=== PATIENT | male | born 1970 | race African-American/Black ===

== ENCOUNTER → 2019-01-12 12:59 | Outpatient (CLI) | payer OTHER, SELFPAY ==
--- NOTE | 2019-01-12 13:03 | DI.MRI.S_ITS ---
PROCEDURE: MR LUMBAR SPINE WO CON INDICATIONS: Low back pain getting worse; hx of DDD and DJD TECHNIQUE: Noncontrast sagittal T1 spin echo and T2 fast echo, sagittal STIR, axial T1 and T2 fast spin echo through the lumbar spine. In cases with scoliosis, additional coronal T2 fast spin echo may be performed. COMPARISON: [facility], MR, MR CERVICAL SPINE WO CON, 01/12/2019, 13:10. [facility], MR, MR THORACIC SPINE WO CON, 01/12/2019, 13:32. [facility], CR, L-SPINE 2-3 VIEWS, 03/06/2013, 10:26. FINDINGS: Image quality: Excellent. Alignment and Curvature: There is normal bony alignment. Bone Marrow: Marrow is of normal overall signal. No acute vertebral body compression fractures. Spinal Cord: Conus medullaris terminates at the L1 level. Visualized cord demonstrates normal signal and size. Paraspinous Soft Tissues: No paravertebral masses. T12-L1: Normal appearance. L1-L2: Normal appearance. L2-L3: Normal appearance. L3-L4: No significant abnormality is seen. L4-L5: The disc height and disc signal are relatively well-preserved. Moderate disc bulge is seen. There is an annular fissure seen posteriorly and on the left, as on series 5 image 28. Moderate bilateral neural foraminal narrowing is seen. [id number] central canal narrowing is seen. L5-S1: The disc height is well-preserved. Loss of disc signal is seen at this level. Mild generalized disc bulge is seen. Mild facet joint hypertrophy is seen. No significant neural foraminal or central canal narrowing can be seen. IMPRESSION: L4-L5 degenerative change, with moderate bilateral neural foraminal narrowing. Dictated by: Christian Larsen M.D. on 01/12/2019 at 15:10 Approved by: Christian Larsen M.D. on 01/12/2019 at 15:13
--- NOTE | 2019-01-12 13:03 | DI.MRI.S_ITS ---
PROCEDURE: MR CERVICAL SPINE WO CON INDICATIONS: Neck pain getting worse; hx of DDD and DJD TECHNIQUE: Noncontrast sagittal T1 spin echo and T2 fast spin echo, sagittal STIR, foraminal oblique sagittal T2 fast spin echo, and axial gradient echo or T2 fast spin echo through the cervical spine. COMPARISON: [facility], MR, MR THORACIC SPINE WO CON, 01/12/2019, 13:32. [facility], MR, MR LUMBAR SPINE WO CON, 01/12/2019, 14:03. [facility], CR, CERVICAL SPINE 2 OR 3 VIEWS, 03/06/2013, 10:26. FINDINGS: Image quality: Excellent. Alignment and Curvature: There is straightening of the normal cervical lordosis. No focal AP alignment abnormality is seen. Bone Marrow: Marrow demonstrates normal overall signal. Spinal Cord: Visualized spinal cord has normal size and signal. No cerebellar tonsillar herniation. Paraspinous Soft Tissues: No paravertebral masses. Prevertebral soft tissues are normal in thickness. C2-C3: No significant abnormality is seen C3-C4: Mild loss of disc height is seen. Loss of disc signal is seen. Moderate generalized disc osteophyte complex is seen. [id number] facet hypertrophy is seen. There is moderate right-sided and moderate to severe left-sided neural foraminal narrowing seen. Moderate canal narrowing is seen, with associated mass effect upon the ventral spinal cord. C4-C5: Mild loss of disc height is seen. Loss of disc signal is seen. Moderate generalized disc osteophyte complex is seen. There is moderate to severe bilateral neural foraminal narrowing seen. At least moderate central canal narrowing is seen, with associated mass effect upon the ventral spinal cord. C5-C6: Moderate to severe loss of disc height and disc signal are seen. Moderate to prominent disc osteophyte complex is seen. [id number] facet hypertrophy is seen. There is at least moderate bilateral neural foraminal narrowing seen. Moderate to severe central canal narrowing is seen, with associated mass effect upon the ventral spinal cord. C6-C7: Moderate loss of disc height is seen. Loss of disc signal is seen. Moderate generalized disc osteophyte complex is seen. Uncovertebral joint hypertrophy is seen at this level. Mild facet joint hypertrophy is seen. There is moderate to severe left-sided and moderate right-sided neural foraminal narrowing seen. Moderate central canal narrowing is seen, with minimal mass effect upon the ventral spinal cord. C7-T1: The disc height is well-preserved. Loss of disc signal is seen at this level. Mild facet joint hypertrophy is seen. Mild bilateral neural foraminal narrowing is seen. The central canal is widely patent. IMPRESSION: Cervical spine degenerative changes are seen, which are most prominent inferiorly. Dictated by: Christian Larsen M.D. on 01/12/2019 at 15:04 Approved by: Christian Larsen M.D. on 01/12/2019 at 15:08
--- NOTE | 2019-01-12 13:03 | DI.MRI.S_ITS ---
PROCEDURE: MR THORACIC SPINE WO CON INDICATIONS: Thoracic back pain getting worse; hx of DDD and DJD TECHNIQUE: Noncontrast sagittal T1 spine echo and T2 fast spin echo, sagittal STIR, axial T1 and T2 fast spin echo through the thoracic spine. COMPARISON: [facility], MR, MR CERVICAL SPINE WO CON, 01/12/2019, 13:10. [facility], MR, MR LUMBAR SPINE WO CON, 01/12/2019, 14:03. FINDINGS: Image quality: Excellent. Alignment and Curvature: There is normal bony alignment. Bone Marrow: Scattered foci are seen, which are hyperintense on T1-weighted and T2-weighted imaging, which are most consistent with benign vertebral body hemangiomas. Marrow is of normal overall signal. No acute vertebral body compression fractures. Spinal Cord: Visualized spinal cord is normal in size and signal. Paraspinous Soft Tissues: No paravertebral masses. Miscellaneous: On axial images, central canal and foramina appear widely patent at all scanned levels. IMPRESSION: No significant thoracic spine abnormality is seen by MRI. Dictated by: Christian Larsen M.D. on 01/12/2019 at 15:09 Approved by: Christian Larsen M.D. on 01/12/2019 at 15:10
== END ==
PROVIDERS: Family Provider Physician Assistant; PCP Physician Assistant; Visit Provider Physician Assistant
DX: M54.5 Low back pain (principal); M51.36 Other intervertebral disc degeneration, lumbar region; M51.34 Other intervertebral disc degeneration, thoracic region; M50.30 Other cervical disc degeneration, unspecified cervical region; M47.812 Spondylosis without myelopathy or radiculopathy, cervical region; M47.816 Spondylosis without myelopathy or radiculopathy, lumbar region
CPT/HCPCS: 72141; 72146; 72148